=== PATIENT | male | born 1940 | race Two or more races ===

== ENCOUNTER 2024-07-16 07:05 | Outpatient (CLI) | payer OTHER ==
[~2024-07-16 07:05] MED LIST: ISORDIL5 MG; PLAVIX75 MG; SYNTHROID75 MCG; ULTRACET
== END 2024-07-16 07:09 | disposition home or self-care (01) ==
LOC: TOM 07:05
DX: K56.600 Partial intestinal obstruction, unspecified as to cause (principal); Z12.11 Encounter for screening for malignant neoplasm of colon